=== PATIENT | male | born 1990 | race Hispanic/Latino ===

== ENCOUNTER 2018-11-01 14:59 | Emergency (ER) | payer MEDICAID ==
[2018-11-01 14:59] VITALS: BMI 34.0
[2018-11-01] MEDS ORDERED: Sodium Chloride 0.9% 1,000 ML IV ONE (16:46)
[2018-11-01 16:48] LABS: BASO % 0.9 % (0.0-2.0); EOS % 0.9 % (0.0-4.0); HEMOGLOBIN 15.2 g/dL (12.0-18.0); LYMPH # 1.8 K/uL (1.0-4.3); LYMPH % 33.2 % (20.0-40.0); MEAN CELL VOLUME 92.7 fL (80.0-94.0); MEAN CORPUSCULAR HEMOGLOBIN 30.7 pg (27.0-31.0); MEAN CORPUSCULAR HGB CONC 33.1 g/dL (33.0-37.0); MEAN PLATELET VOLUME 10.4 fL (7.2-11.7); MONO # 0.5 K/uL (0.0-0.8); MONO % 8.7 % (0.0-10.0); NEUT % 56.3 % (50.0-75.0); NRBC % 0.1 % (0.0-2.0); RBC 4.96 Mil/uL (4.40-5.90); RED CELL DISTRIBUTION WIDTH 14.8 % (11.5-14.5); WHITE BLOOD COUNT 5.3 K/uL (4.8-10.8)
[2018-11-01 17:04] LABS: ALB/GLOB RATIO 1.5 (1.0-2.1); ALBUMIN 4.7 g/dL (3.5-5.0); ALT/SGPT 27 U/L (21-72); AST/SGOT 31 U/L (17-59); BLOOD UREA NITROGEN 4 mg/dL (9-20); CALCIUM 9.4 mg/dl (8.6-10.4); GFR NON-AFRICAN AMERICAN > 60
[2018-11-01] MEDS ORDERED: Potassium & Sodium Phosphate PO STA (17:29)
--- NOTE | 2018-11-01 17:43 | C.PDOC ---
History Of Present Illness 28 year old male presents to ED requesting alcohol detox. Patient states that his last drink was today. Patient had been pre-screened. Patient has no physical complaints. Patient denies suicidal ideation and homicidal ideation. Time Seen by Provider: 11/01/18 16:11 Chief Complaint (Nursing): Substance Abuse History Per: Patient History/Exam Limitations: no limitations Suicide/Self Injury Attempted (Context): None Modifying Factor(s): Alcohol Associated Symptoms: denies: Suicidal Thoughts, Suicidal Plan, Other (homicidal ideation) Past Medical History Reviewed: Historical Data, Nursing Documentation, Vital Signs Vital Signs: Last Vital Signs Temp 99.4 F 11/01/18 15:30 Pulse 143 H 11/01/18 15:30 Resp 19 11/01/18 15:30 BP 156/102 H 11/01/18 15:30 Pulse Ox 97 11/01/18 15:30 - Medical History PMH: Depression, HTN Surgical History: No Surg Hx Family History: States: Unknown Family Hx - Social History Hx Alcohol Use: Yes Hx Substance Use: Yes - Immunization History Hx Tetanus Toxoid Vaccination: No Hx Influenza Vaccination: No Hx Pneumococcal Vaccination: No Review Of Systems Except As Marked, All Systems Reviewed And Found Negative. Physical Exam - Physical Exam Appears: Well, Non-toxic, No Acute Distress Skin: Normal Color, Warm, Dry Head: Atraumatic, Normacephalic Eye(s): bilateral: Normal Inspection, PERRL, EOMI Nose: Normal Oral Mucosa: Moist Neck: Supple Chest: Symmetrical, No Deformity Cardiovascular: Rhythm Regular, No Murmur Respiratory: No Accessory Muscle Use, No Rales, No Rhonchi, No Wheezing Gastrointestinal/Abdominal: Normal Exam, Soft, No Tenderness Extremity: Bilateral: Atraumatic, Normal Color And Temperature, Normal ROM Neurological/Psych: Oriented x3, Normal Speech, Normal Cognition ED Course And Treatment - Laboratory Results Result Diagrams: 11/01/18 16:45 11/01/18 16:45 Lab Results: Total Bilirubin 0.4 mg/dL (0.2-1.3) 11/01/18 16:45 AST 31 U/L (17-59) 11/01/18 16:45 ALT 27 U/L (21-72) 11/01/18 16:45 Alkaline Phosphatase 78 U/L (38-126) 11/01/18 16:45 Total Protein 7.9 g/dL (6.3-8.3) 11/01/18 16:45 Albumin 4.7 g/dL (3.5-5.0) 11/01/18 16:45 Globulin 3.1 gm/dL (2.2-3.9) 11/01/18 16:45 Albumin/Globulin Ratio 1.5 (1.0-2.1) 11/01/18 16:45 O2 Sat by Pulse Oximetry: 97 (in RA) Medical Decision Making Medical Decision Making: Assessment: alcohol abuse Plan: Labs ordered with drug screen and UA Patient was given Neutra-Phos PO and IV fluids case s/o to Dr. THOMPSON at 1900 pending drug screen, ekg, and disposition Disposition Discussed With : Mari Thompson - Disposition Disposition Time: 19:00 Condition: STABLE Forms: [facility] ([place]ian) - Clinical Impression Clinical Impression: Alcohol abuse - Scribe Statement The provider has reviewed the documentation as recorded by the Scribe (Doris Ang) All medical record entries made by the Scribe were at my direction and personally dictated by me. I have reviewed the chart and agree that the record accurately reflects my personal performance of the history, physical exam, medical decision making, and the department course for this patient. I have also personally directed, reviewed, and agree with the discharge instructions and disposition.
[2018-11-01] MEDS ORDERED: Sodium Chloride 0.9% 1,000 ML ONE (18:06)
[2018-11-01 18:41] LABS: SQUAMOUS EPITHIAL < 1 /hpf (0-5); URINE BILIRUBIN NEGATIVE (NEGATIVE); URINE BLOOD NEGATIVE (NEGATIVE); URINE CLARITY Clear (Clear); URINE COLOR Straw (YELLOW); URINE GLUCOSE (UA) 3+ mg/dL (Normal); URINE LEUKOCYTE ESTERASE NEG Leu/uL (Negative); URINE PROTEIN NEGATIVE (NEGATIVE); URINE UROBILINOGEN NORMAL mg/dL (0.2-1.0)
[2018-11-01 19:01] LABS: BARBITURATES, UR NEGATIVE (NEGATIVE); BENZODIAZEPINES, UR NEGATIVE (NEGATIVE); OPIATES, UR NEGATIVE (NEGATIVE)
[2018-11-01 19:08] LABS: PHENCYCLIDINE, UR POSITIVE (NEGATIVE)
[2018-11-01 20:05] VITALS: BP 150/92; PULSE 112; RESP 20; TEMP 98.2; O2SAT 98
== END 2018-11-01 20:06 | disposition home or self-care (01) ==
LOC: C.ER 14:59
DX: F10.10 Alcohol abuse, uncomplicated (principal); R00.0 Tachycardia, unspecified; I10 Essential (primary) hypertension
CPT/HCPCS: 80053; 80320; 80324; 80345; 80346; 80349; 80353; 80358; 80361; 81001; 82948; 83735; 83992; 84100; 85025; 96360; 99285; J7030